=== PATIENT | female | born 1980 | race Hispanic/Latino ===

== ENCOUNTER 2018-12-16 15:42 | Observation (INO) | payer BC ==
[~2018-12-16] VITALS: Ht 162.6 cm; Wt 92.2 kg
--- OUTSIDE RECORDS SUMMARY | 2018-12-16 15:45 | XMS REPORT ---
Author Author [facility] Address Unknown Phone Unavailable Care Team Providers Care Gravity Meter Observer Name Role Phone CYRUS RODRIGUEZ Unavailable Unavailable Problems This patient has no known problems. Allergies, Adverse Reactions, Alerts This patient has no known allergies or adverse reactions. Medications This patient has no known medications. Results Test Description Test Time Test Comments Text Results Atomic Results Result Comments CT ABDOMEN/PELVIS W 2018-12-16 15:14:00 [place] [address] Patient Name: MAHENDRA MALIK MR #: [id number] : 1980 Age/Sex: 38/F Req #: [id number] [facility] Physician: Ordered by: CYRUS RODRIGUEZ DO Report #: [id number] Location: CT Room/Bed: Procedure: [id number] CT/CT ABDOMEN/PELVIS W Exam Date: 12/16/18 Exam Time: 1500 REPORT STATUS: Signed EXAM: CT Abdomen and Pelvis WITH contrast INDICA TION: Abdominal Pain COMPARISON: None. TECHNIQUE: Abdomen and pelvis were scanned utilizing a multidetector helical scanner from the lung base to the pubic symphysis after administration of IV contrast. Coronal and sagittal reformations were obtained. Routine protocol was performed. Scan was performed when during portal venous phase. IV CONTRAST: 150 mL of Omnipaque 300 ORAL CONTRAST: Water COMPLICATIONS: None RADIATION DOSE: Total DLP: (DLP x 0.015 x size factor) mGy*cm Estimated effective dose: (DLP x 0.015 x size factor) mSv CTDIvol has been reviewed. It is below the limits set by the Radiation Protocol Committee (RPC). FINDINGS: LINES and TUBES: None. LOWER THORAX: Unremarkable HEPATOBILIARY: Hepatic steatosis. There is focal fatty infiltration adjacent to falciform ligament. No evidence of focal lesion. No biliary ductal dilatation. GALLBLADDER: No radio-opaque stones or sludge. No wall thi ckening. SPLEEN: No splenomegaly. PANCREAS: No focal masses or ductal dilatation. ADRENALS: No adrenal nodules KIDNEYS/URETERS: Kidneys enhance symmetrically. No evidence of solid mass or hydronephrosis. There is a wedge-shaped defect in the right upper pole kidney, suggestive of prior infarct. Subcentimeter hypodensity in the left kidney is too small to characterize, but likely represents a cyst. GI TRACT: No evidence of wall thickening or distension. The appendix is dilated, measuring up to 1.1 cm with mild periappendiceal stranding (series 2, image 60). PELVIC ORGANS/BLADDER: The bladder is unremarkable in appearance. There is heterogeneity and fluid noted within the lower aspect of the uterus. LYMPH NODES: No lymphadenopathy. VESSELS: Unremarkable. PERITONEUM / RETROPERITONEUM: No free air or fluid. BONES AND SOFT TISSUES: Unremarkable. CONCLUSION: Findings of acute appendicitis. No evidence of gross perforation or drainable fluid collection. The above findings were discussed with Dr. Johns on 12/16/2018 at 3:15 PM, who responded indicating that the communication was understood. The patient was also directly informed of the above findings, and will be accompanied by radiology staff to the [facility]'s [facility] ED. Diffuse hepatic steatosis. Nonspecific heterogeneity and fluid noted within the lower aspect of the uterus. Suggest correlation with phase of menstrual cycle and clinical exam. Signed by: Dr. Gemini Mariano MD on 12/16/2018 3:26 PM Dictated By: GEMINI MARIANO MD Electr onically Signed By: GEMINI MARIANO MD on 12/16/18 1526 Transcribed By: JULIA on 12/16/18 1526 COPY TO: CYRUS RODRIGUEZ DO
[2018-12-16] MEDS ORDERED: IOPAMIDOL 370 MG/ML 200 ML INFUS..BTL INJ ONE (15:51)
[2018-12-16] MEDS ORDERED: SODIUM CHLORIDE 0.9% 50ML 50 ML ONE (15:51)
[2018-12-16] MEDS ORDERED: SODIUM CHLORIDE 0.9% 1000ML 1,000 ML IV SCH (16:30)
[2018-12-16] MEDS ORDERED: PIPER-TAZ 3.375 GM 50 ML IV ONE (16:30)
[2018-12-16 16:56] LABS: BASOPHILS # (AUTO) 0.1 (0.0-0.1); BASOPHILS % 0.3 % (0.0-1.0); EOSINOPHILS % 0.1 % (0.0-6.0); HEMATOCRIT 34.9 % (34.2-44.1); HEMOGLOBIN 10.8 g/dL (12.0-16.0); LYMPHOCYTES # (AUTO) 2.4 (1.0-3.2); LYMPHOCYTES % 13.7 % (18.0-39.1); MEAN CORPUSCULAR HEMOGLOBIN 23.3 pg (28-32); MEAN CORPUSCULAR HGB CONC 30.9 g/dL (31-35); MEAN CORPUSCULAR VOLUME 75.4 fL (81-99); MONOCYTES # (AUTO) 0.6 (0.2-0.8); MONOCYTES % 3.7 % (4.4-11.3); NEUTROPHILS % 81.6 % (38.7-80.0); PLATELET COUNT 419 x10e3/uL (140-360); RED BLOOD COUNT 4.63 x10e6/uL (3.6-5.1); RED CELL DISTRIBUTION WIDTH 15.9 % (11.7-14.4)
[2018-12-16 17:00] LABS: BILIRUBIN,URINE NEGATIVE (NEGATIVE); CLARITY,URINE CLEAR (CLEAR); COLOR,URINE YELLOW (YELLOW); KETONES,URINE 1+ (NEGATIVE); LEUKOCYTE ESTERASE ,URINE NEGATIVE (NEGATIVE); NITRITE,URINE NEGATIVE (NEGATIVE); PROTEIN,URINE DIPSTICK NEGATIVE (NEGATIVE); URINE UROBILINOGEN 0.2 mg/dL (0.2 - 1)
[2018-12-16] MEDS ORDERED: ONDANSETRON HCL INJ 2MG/ML 2ML 2 MG/ML VIAL IV STA (17:07)
[2018-12-16 17:10] LABS: WBC,URINE (MAN) 0-5 /HPF (0-5)
[2018-12-16 17:11] LABS: EPITHELIAL CELLS,URINE FEW /LPF
[2018-12-16 17:13] LABS: PREGNANCY TEST, URINE NEGATIVE (NEGATIVE)
[2018-12-16] MEDS ORDERED: MORPHINE SULFATE INJ 4 MG/ML INJ 1ML IV ONE (17:15)
[2018-12-16 17:16] LABS: AMYLASE 49 U/L (25-125); LIPASE 34 U/L (8-78)
[2018-12-16 17:18] LABS: ALANINE AMINOTRANSFERASE 9 IU/L (0-55); ALBUMIN 3.3 g/dL (3.5-5.0); ALBUMIN/GLOBULIN RATIO 0.8 (0.8-2.0); ALKALINE PHOSPHATASE 90 IU/L (40-150); ANION GAP 12.6 mmol/L (8-16); BLOOD UREA NITROGEN 7 mg/dL (7-26); BUN/CREATININE RATIO 11 (6-25); CARBON DIOXIDE 23 mmol/L (22-29); CHLORIDE 100 mmol/L (98-107); CREATININE, SERUM 0.64 mg/dL (0.57-1.11); EST GLOMERULAR FILTRATION RATE > 60 ML/MIN (60-); GLUCOSE 88 mg/dL (74-118); POTASSIUM 3.6 mmol/L (3.5-5.1); SODIUM 132 mmol/L (136-145)
[2018-12-16] MEDS ORDERED: SODIUM CHLORIDE 0.9% 1000ML 1,000 ML IV ONE (19:30)
[2018-12-16] MEDS ORDERED: ACETAMINOPHEN 325 MG TAB PO PRN (20:45)
[2018-12-16] MEDS ORDERED: MORPHINE SULFATE 2 MG/ML SYR 1ML IV PRN (20:45)
[2018-12-16] MEDS ORDERED: MORPHINE SULFATE INJ 4 MG/ML INJ 1ML IV PRN (20:45)
[2018-12-16] MEDS ORDERED: ONDANSETRON HCL INJ 2MG/ML 2ML 2 MG/ML VIAL IV PRN (20:45)
[2018-12-16] MEDS: PIPER-TAZ 3.375 GM 50 ML IV SCH (21:00)
[2018-12-16] MEDS: SODIUM CHLORIDE 0.9% 1000ML 1,000 ML IV SCH (21:30)
[2018-12-16] MEDS ORDERED: PIPER-TAZ 3.375 GM / NS 50ML IV SCH (22:00)
[2018-12-16 22:45] VITALS: BP 101/50
--- NOTE | 2018-12-16 22:45 | NUR ---
INITIAL ASSESSMENT COMPLETE, ORIENTED TO ROOM, NO PAIN NOTED, IV INTACT, CALL LIGHT IN REACH, FAMILY AT BEDSIDE, PT NPO, VS STABLE, TOLD TO CALL FOR NEEDS
[2018-12-17] VITALS (7 sets, daily range): BP systolic 99–123; BP diastolic 50–79
[2018-12-17] MEDS: PIPER-TAZ 3.375 GM 50 ML IV SCH ×3 (06:00→21:53)
[2018-12-17] MEDS: SODIUM CHLORIDE 0.9% 1000ML 1,000 ML IV SCH (06:50)
--- NOTE | 2018-12-17 06:55 | NUR ---
rounded with assistant shift supervisor nurse, patient aware of change with family at bedside. call lopez within reach and bed in lowest position
[2018-12-17 07:37] LABS: BASOPHILS # (AUTO) 0.1 (0.0-0.1); BASOPHILS % 0.4 % (0.0-1.0); EOSINOPHILS # (AUTO) 0.1 (0.0-0.4); EOSINOPHILS % 0.8 % (0.0-6.0); HEMOGLOBIN 9.7 g/dL (12.0-16.0); LYMPHOCYTES # (AUTO) 2.3 (1.0-3.2); LYMPHOCYTES % 20.8 % (18.0-39.1); MEAN CORPUSCULAR HEMOGLOBIN 23.3 pg (28-32); MEAN CORPUSCULAR HGB CONC 31.3 g/dL (31-35); MEAN CORPUSCULAR VOLUME 74.5 fL (81-99); MONOCYTES # (AUTO) 0.6 (0.2-0.8); MONOCYTES % 5.3 % (4.4-11.3); NEUTROPHILS # (AUTO) 8.1 (2.1-6.9); NEUTROPHILS % 72.3 % (38.7-80.0); PLATELET COUNT 372 x10e3/uL (140-360); RED BLOOD COUNT 4.16 x10e6/uL (3.6-5.1); RED CELL DISTRIBUTION WIDTH 16.1 % (11.7-14.4)
[2018-12-17 07:57] LABS: ALANINE AMINOTRANSFERASE 7 IU/L (0-55); ALBUMIN 2.6 g/dL (3.5-5.0); ALBUMIN/GLOBULIN RATIO 0.8 (0.8-2.0); ALKALINE PHOSPHATASE 72 IU/L (40-150); ANION GAP 11.8 mmol/L (8-16); BLOOD UREA NITROGEN 5 mg/dL (7-26); BUN/CREATININE RATIO 7 (6-25); CARBON DIOXIDE 24 mmol/L (22-29); CHLORIDE 105 mmol/L (98-107); CREATININE, SERUM 0.67 mg/dL (0.57-1.11); EST GLOMERULAR FILTRATION RATE > 60 ML/MIN (60-); GLUCOSE 101 mg/dL (74-118); POTASSIUM 3.8 mmol/L (3.5-5.1); SODIUM 137 mmol/L (136-145)
--- NOTE | 2018-12-17 11:43 | NUR ---
patient leaving floor alert and oriented via hospital bed to surgery
[2018-12-17] MEDS ORDERED: BUPIVACAINE 0.25%/EPI 30ML SDV INJ ONE (11:51)
[2018-12-17] MEDS ORDERED: DEXTROSE 5%/LACTATED RINGERS 1,000 ML IV SCH (13:28)
[2018-12-17] MEDS ORDERED: HYDROMORPHONE 1MG/1ML INJ IV PRN (13:30)
[2018-12-17] MEDS ORDERED: HYDROCODONE/APAP 7.5MG-325MG 1 EA TAB PO PRN (13:30)
[2018-12-17] MEDS ORDERED: PROPOFOL IV EMULSION 10 MG/ML 20 ML VIAL ONE (14:14)
[2018-12-17] MEDS ORDERED: DEXAMETHASONE SOD PHOS INJ 4 MG/ML VIAL ONE (14:14)
[2018-12-17] MEDS ORDERED: GLYCOPYRROLATE INJ 1MG/ 5 ML SYR ONE (14:14)
[2018-12-17] MEDS ORDERED: NEOSTIGMINE 5 MG/5ML SYR ONE (14:14)
[2018-12-17] MEDS ORDERED: ONDANSETRON HCL INJ 2MG/ML 2ML 2 MG/ML VIAL ONE (14:14)
[2018-12-17] MEDS ORDERED: SEVOFLURANE INHAL SOLN 250 ML PEN BTL ONE (14:14)
[2018-12-17] MEDS ORDERED: LIDOCAINE HCL 2% LOCAL INJ 5 ML SDV VIAL INJ ONE (14:14)
[2018-12-17] MEDS ORDERED: ROCURONIUM BROMIDE 10 MG/ML 5ML VIAL ONE (14:14)
[2018-12-17] MEDS: HYDROMORPHONE 2MG/ML 2 MG/ML ML IV PRN ×2 (14:28→22:32)
--- NOTE | 2018-12-17 15:10 | NUR ---
Visit made by the Spiritual Care Department Pastoral Visitor, Yuliana Boss. Pt sleeping soundly and no family present. Pastoral Visitor left a card describing availability of diesel engine erector and instructions on how to contact a diesel engine erector. MAXINE JIM Anatomy And Physiology Instructor Spiritual Care Department O: [phone] Pager: [phone] ([phone] number calling from)
--- NOTE | 2018-12-17 18:53 | NUR ---
rounded with manufacturing shift supervisor nurse, patient aware of change. Call lopez within reach and bed in lowest position.
--- NOTE | 2018-12-17 19:00 | NUR ---
received report from day nurse. patient is resting comfortably in bed. bed is in lowest position and call lopez is within reach. will continue to monitor patient.
--- NOTE | 2018-12-17 19:09 | Operative Report ---
DATE OF PROCEDURE: 12/17/2018 SURGEON: Israel Swan MD PREOPERATIVE DIAGNOSIS: Acute appendicitis. POSTOPERATIVE DIAGNOSIS: Acute retrocecal appendicitis. OPERATION PERFORMED: Laparoscopic appendectomy. ANESTHESIA: General. COMPLICATIONS: None. ESTIMATED BLOOD LOSS: Minimal. PROCEDURE IN DETAIL: With the patient lying in bed in the supine position under good general endotracheal anesthesia, the abdomen was prepped with Betadine solution and draped in the usual manner. A Veress needle was introduced into the umbilicus and pneumoperitoneum was established without any difficulty. A 12 mm trocar was placed into the umbilicus and a 10 mm videolaparoscope was placed into the intra-abdominal cavity. Under direct vision, a 5 mm trocar was placed in the suprapubic region and another 5 mm trocar was placed in the left lower abdomen. Video laparoscopy at this point revealed an acutely inflamed, not perforated retrocecal appendix. The rest of the abdominal exploration was otherwise within normal limits. The appendix was then mobilized over the retroperitoneum without any difficulty. The base of the appendix was then dissected and divided with an application of the Endo-SHAY stapler. The mesentery of the appendix was then divided with an application of the Endo-SHAY vascular stapler. The appendix was totally mobilized and and placed in a pouch and removed through the umbilicus without any difficulty. Video laparoscopy was then again carried out. The staple lines were intact. There was no bleeding. The whole area was thoroughly irrigated and all the excess fluid was aspirated. The pneumoperitoneum was evacuated and all the trocars were removed under direct vision. The midline fascia at the umbilicus was then closed with a [id number] of 0 Vicryl. All layers were infiltrated on the way out with solution of 0.25% Marcaine. Subcutaneous tissue was approximated with 3-0 Vicryl and the skin was closed with subcuticular 5-0 Vicryl. Benzoin, Steri-Strips, and Band-Aids were applied. The sponge, lap, and needle count was correct. The patient tolerated the procedure well and returned to the recovery room in stable condition. Israel Swan MD JLR/MODL /[id number]
[2018-12-17] MEDS ORDERED: FENTANYL CITRATE/PF 100MCG/2 ML INJ ONE (20:03)
[2018-12-17] MEDS ORDERED: MIDAZOLAM HCL 2 MG/2 ML VIAL ONE (20:03)
[2018-12-18] VITALS: BP 115/59
[2018-12-18] MEDS: HYDROMORPHONE 2MG/ML 2 MG/ML ML IV PRN (01:42)
[2018-12-18 04:00] VITALS: BP 103/54
[2018-12-18] MEDS: PIPER-TAZ 3.375 GM 50 ML IV SCH (05:02)
[2018-12-18 05:50] LABS: BASOPHILS % 0.2 % (0.0-1.0); EOSINOPHILS % 0.1 % (0.0-6.0); HEMATOCRIT 29.3 % (34.2-44.1); HEMOGLOBIN 8.9 g/dL (12.0-16.0); LYMPHOCYTES # (AUTO) 2.3 (1.0-3.2); LYMPHOCYTES % 16.7 % (18.0-39.1); MEAN CORPUSCULAR HEMOGLOBIN 22.8 pg (28-32); MEAN CORPUSCULAR HGB CONC 30.4 g/dL (31-35); MEAN CORPUSCULAR VOLUME 75.1 fL (81-99); MONOCYTES # (AUTO) 0.7 (0.2-0.8); MONOCYTES % 4.8 % (4.4-11.3); NEUTROPHILS # (AUTO) 10.6 (2.1-6.9); NEUTROPHILS % 77.6 % (38.7-80.0); PLATELET COUNT 327 x10e3/uL (140-360); RED CELL DISTRIBUTION WIDTH 16.4 % (11.7-14.4)
[2018-12-18 06:15] LABS: ANION GAP 10.7 mmol/L (8-16); BLOOD UREA NITROGEN 5 mg/dL (7-26); BUN/CREATININE RATIO 7 (6-25); CALCIUM 8.2 mg/dL (8.4-10.2); CARBON DIOXIDE 25 mmol/L (22-29); CHLORIDE 107 mmol/L (98-107); CREATININE, SERUM 0.68 mg/dL (0.57-1.11); EST GLOMERULAR FILTRATION RATE > 60 ML/MIN (60-); GLUCOSE 121 mg/dL (74-118); POTASSIUM 3.7 mmol/L (3.5-5.1); SODIUM 139 mmol/L (136-145)
--- NOTE | 2018-12-18 07:05 | NUR ---
report given to day nurse. patient is resting comfortably in bed. bed is in lowest position.
[2018-12-18] MEDS ORDERED: BUPIVACAINE 0.25%/EPI 30ML SDV INJ ONE (07:30)
[2018-12-18 07:53] VITALS: BP 121/74
[2018-12-18 10:28] VITALS: BP 121/74
[2018-12-18 11:42] VITALS: BP 107/58
[2018-12-18] MEDS ORDERED: KEFLEX500 MG PO (13:14)
[2018-12-18] MEDS ORDERED: TYLENOL # 31 EA PO (13:14)
== END 2018-12-18 14:00 | disposition home or self-care (01) ==
LOC: ER 15:42 → ERHOLD 20:47 → IMCU 22:36
PROVIDERS: ADMIT Surgery; ATTEND Surgery
DX: K35.80 Unspecified acute appendicitis (principal)
CPT/HCPCS: 36415 ×3; 44970; 80048; 80053 ×2; 81001; 81025; 82150; 83690; 85025 ×3; 88304; 93005; 99284; C1766; G0378 ×3; J1100; J1170 ×2; J2001; J2250; J2270; J2405 ×2; J2543 ×3; J2704; J3490; J7030 ×2; J7121; Q9967

== ENCOUNTER → 2022-01-27 | Day surgery (SDC) | payer BC ==
[2022-01-25 09:33] LABS: BASOPHILS # (AUTO) 0.1 (0.0-0.1); BASOPHILS % 0.9 % (0.0-1.0); EOSINOPHILS # (AUTO) 0.2 (0.0-0.4); EOSINOPHILS % 2.9 % (0.0-6.0); HEMATOCRIT 42.6 % (34.2-44.1); HEMOGLOBIN 13.5 g/dL (12.0-16.0); LYMPHOCYTES # (AUTO) 2.2 (1.0-3.2); LYMPHOCYTES % 37.2 % (18.0-39.1); MEAN CORPUSCULAR HEMOGLOBIN 28.4 pg (28-32); MEAN CORPUSCULAR HGB CONC 31.7 g/dL (31-35); MEAN CORPUSCULAR VOLUME 89.5 fL (81-99); MONOCYTES # (AUTO) 0.3 (0.2-0.8); MONOCYTES % 4.9 % (4.4-11.3); NEUTROPHILS # (AUTO) 3.2 (2.1-6.9); NEUTROPHILS % 53.9 % (38.7-80.0); PLATELET COUNT 248 x10e3/uL (140-360); RED BLOOD COUNT 4.76 x10e6/uL (3.6-5.1); RED CELL DISTRIBUTION WIDTH 13.4 % (11.7-14.4)
[2022-01-25 10:08] LABS: ANION GAP 16.6 mmol/L (8-16); CALCIUM 9.4 mg/dL (8.4-10.2); CREATININE, SERUM 0.74 mg/dL (0.57-1.11); POTASSIUM 4.6 mmol/L (3.5-5.1)
[2022-01-25 10:41] LABS: CLARITY,URINE CLEAR (CLEAR); COLOR,URINE YELLOW (YELLOW); KETONES,URINE NEGATIVE (NEGATIVE); LEUKOCYTE ESTERASE ,URINE NEGATIVE (NEGATIVE); NITRITE,URINE POSITIVE (NEGATIVE); PROTEIN,URINE DIPSTICK NEGATIVE (NEGATIVE); URINE UROBILINOGEN 2 mg/dL (0.2 - 1)
[~2022-01-27] MED LIST: BIOTIN1 MG PO; BUPIVACAINE HCL 0.25% 10ML MPF VIAL INJ ONE; CALCIUM + VITA1 EAC1 PO; DEXAMETHASONE SOD PHOS INJ 4 MG/ML SDV ONE; FENTANYL CITRATE/PF 100MCG/2 ML INJ ONE; FERROUS SULFATE PO; GLYCOPYRROLATE INJ 0.2 MG/ML VIAL ONE; KEFLEX500 MG PO; KETOROLAC TROMETHAMINE 30 MG/ML VIAL ONE; MEPERIDINE HCL INJ 25 MG/ML VIAL ONE; MIDAZOLAM HCL 2 MG/2 ML VIAL ONE; MULTI-VITAMIN1 EACH PO; NEOSTIGMINE 1 MG/ML 10ML VIAL ONE; ONDANSETRON HCL INJ 2MG/ML 2ML 2 MG/ML VIAL ONE; POVIDONE IODINE 0.05% 0.05 % ML PO ONE; PROPOFOL IV EMULSION 10 MG/ML 20 ML VIAL ONE; ROCURONIUM BROMIDE 10 MG/ML 5ML VIAL IV ONE; SEVOFLURANE INHAL SOLN 250 ML PEN BTL ONE; TYLENOL # 31 EA PO
[2022-01-27 13:09] VITALS: BP 126/74
== END | disposition home or self-care (01) ==
LOC: OR 08:12
PROVIDERS: ATTEND Surgery
DX: K80.10 Calculus of gallbladder with chronic cholecystitis without obstruction (principal); Z01.812 Encounter for preprocedural laboratory examination; Z20.822 Contact with and (suspected) exposure to COVID-19
CPT/HCPCS: 36415; 47562; 80053; 81003; 81025; 85025; 88304; C1713; C1766; J1100; J1885; J2175; J2250; J2405; J2704; J2710; J3010; U0002